=== PATIENT | female | born 1950 | race Two or more races ===

== ENCOUNTER 2022-12-15 16:19 | Emergency (ER) | payer OTHER ==
[~2022-12-15] VITALS: Ht 170.2 cm; Wt 72.6 kg
[~2022-12-15 16:19] MED LIST: FLEXERIL10 MG PO; NABUMETONE750 MG PO; NEURONTIN300 MG
== END 2022-12-15 18:57 | disposition home or self-care (01) ==
LOC: ER 16:19
PROVIDERS: General Practice
DX: N39.0 Urinary tract infection, site not specified (principal); Z88.0 Allergy status to penicillin; Z88.2 Allergy status to sulfonamides; E11.9 Type 2 diabetes mellitus without complications; I10 Essential (primary) hypertension; Z20.822 Contact with and (suspected) exposure to COVID-19